=== PATIENT | male | born 1960 | race Caucasian/White ===

== ENCOUNTER 2017-04-27 06:14 | Day surgery (SDC) | payer BC ==
[~2017-04-27] VITALS: Ht 188 cm; Wt 132.3 kg
[2017-04-27] MEDS ORDERED: SODIUM CHLORIDE 0.9% 1000ML 1,000 ML IV ONE (06:29)
[2017-04-27] MEDS ORDERED: SIMV20TA6 PO (06:52)
[2017-04-27] MEDS ORDERED: LOSA25TA21 PO (06:52)
[2017-04-27] MEDS ORDERED: AMLO10TA2 PO (06:52)
[2017-04-27] MEDS ORDERED: ASPI-555 PO (06:53)
[2017-04-27 06:54] VITALS: BP 142/82
[2017-04-27] MEDS ORDERED: PROPOFOL 10 MG/ML 20ML VIAL IV ONE (08:04)
== END 2017-04-27 08:50 ==
LOC: DAH 06:14 → ENDO 06:14
PROVIDERS: ATTEND Internal Medicine Gastroenterology
DX: Z12.11 Encounter for screening for malignant neoplasm of colon (principal); K21.9 Gastro-esophageal reflux disease without esophagitis; J45.909 Unspecified asthma, uncomplicated; G47.33 Obstructive sleep apnea (adult) (pediatric); Z87.01 Personal history of pneumonia (recurrent); I10 Essential (primary) hypertension; Z82.49 Family history of ischemic heart disease and other diseases of the circulatory system; Z98.890 Other specified postprocedural states; Z88.8 Allergy status to other drugs, medicaments and biological substances
CPT/HCPCS: 45378; A4606; J2704; J7030; G9654